=== PATIENT | male | born 1960 | race Caucasian/White ===

== ENCOUNTER 2016-07-26 09:51 | Emergency (ER) | payer OTHER ==
[2016-07-26 09:58] VITALS: O2SAT 95
[2016-07-26] MEDS ORDERED: NS 1,000 ML IV ONE ×2 (10:09)
--- NOTE | 2016-07-26 10:12 | EDPHY ---
H & P Stated Complaint: Bilat flank pain since yesterday, blood in urine today Time Seen by Provider: 07/26/16 10:01 HPI/ROS: CHIEF COMPLAINT: Flank pain, hematuria day HISTORY OF PRESENT ILLNESS: 55-year-old male with no prior history of nephrolithiasis, no anticoagulant use, complaining of left flank abdominal pain , hematuria since yesterday. Normal urine output. No testicular genitalia pain. No perineal pain. No clots. No antecedent urinary or other illness. No dyspnea. No trauma. No rash. PRIMARY CARE PROVIDER: Dr. Madhu Chu REVIEW OF SYSTEMS: A ten point review of systems was performed and is negative with the exception of the items mentioned in the HPI PAST MEDICAL & SURGICAL HISTORY: bipolar disorder. Alcoholism. Suboxone therapy. SOCIAL HISTORY: Nonsmoker PHYSICAL EXAM (Prior to examination, patient consented to physical exam, hands were washed and my usual and customary physical exam procedures followed) 1) GENERAL: Well-developed, well-nourished, alert and oriented. Appears nontoxic . 2) HEAD: Normocephalic, atraumatic 3) HEENT: Pupils equal, round, reactive to light bilaterally. Sclera anicteric. 4) NECK: Full range of motion, no meningeal signs. 5) LUNGS: Clear auscultation bilaterally, no wheezes, no rhonchi, no retractions. 6) HEART: Regular rate and rhythm, no murmur, no heave, no gallop. 7) ABDOMEN: No guarding, no rebound, no focal tenderness, negative McBurney's, negative Martinez's, negative Rovsing's, negative peritoneal sign, I am unable to elicit any abdominal pain 8) MUSCULOSKELETAL: Moving all extremities, no focal areas of tenderness, no obvious trauma. No peripheral edema or discoloration. 9) BACK: positive left CVA tenderness, 10) SKIN: No rash, no petechiae. 11) : Normal male external genitalia, no testicular pain, no asymmetry, no swelling. Perineal examination unremarkable with no tenderness.. DIFFERENTIAL DIAGNOSIS: in no particular include but not limited to nephrolithiasis, pyelonephritis, abdominal aortic aneurysm or dissection - Personal History Current Tetanus Diphtheria and Acellular Pertussis (TDAP): Yes - Medical/Surgical History Hx Asthma: No Hx Chronic Respiratory Disease: No Hx Diabetes: No Hx Cardiac Disease: No Hx Renal Disease: No Hx Cirrhosis: No Hx Alcoholism: Yes Hx HIV/AIDS: No Hx Splenectomy or Spleen Trauma: No Other PMH: HTN, bipolar. - Social History Smoking Status: Light smoker Constitutional: Initial Vital Signs Temperature (C) 36.7 C 07/26/16 09:53 Heart Rate 88 07/26/16 09:53 Respiratory Rate 16 07/26/16 09:53 Blood Pressure 146/97 H 07/26/16 09:53 O2 Sat (%) 95 07/26/16 09:53 O2 Delivery Mode Room Air Allergies/Adverse Reactions: neomycin [Neomycin] Allergy (Severe, Verified 02/15/09 21:01) Home Medications: Medication Instructions Recorded TONY-D 12 HOUR TABLET 02/15/09 CYMBALTA 02/15/09 Buprenorphine 07/26/16 LaMICtal 07/26/16 Peg 3350/Na Sulf,Bicarb,Cl/KCl 1,000 ml PO ONCE #4000 ml 07/26/16 [Golytely (RX)] Medical Decision Making - Diagnostics Imaging: CT Abdomen and Pelvis Unenhanced (Renal Stone Protocol) Indication: Left flank pain. Comparison: None available. Technique: Axial unenhanced CT imaging was performed through the abdomen and pelvis without contrast. Dose reduction techniques were utilized. Findings: Abdomen: The lung bases are clear. The imaged noncontrast portions of the liver, spleen, gallbladder, pancreas and adrenal glands are unremarkable. There is a punctate nonobstructing stone in the inferior right kidney. The left kidney has a normal unenhanced appearance. Moderate stool is present throughout the colon. The colon and small bowel are normal caliber. The appendix is normal. There is no free fluid or air. A small fat-containing paraumbilical hernia is present. The aorta is normal caliber. Mild degenerative change is present in the spine. Pelvis: No bladder or distal ureteral calcifications are identified. The prostate is normal size. No aggressive osseous lesions are present. Impression: 1. Punctate nonobstructing right renal stone. 2. Constipation. 3. Small fat-containing paraumbilical hernia. 4. Additional findings as above. Findings discussed with Henrik Florentino on July 26, 2016 at 11:02 a.m. Attention: This CT examination is specifically designed to evaluate patients who are clinically suspected of having acute obstructive uropathy. This examination does not use radiographic contrast , and as such, provides only a limited evaluation of the abdomen, pelvis and retroperitoneum. If there is further clinical suspicion for pathological conditions other than obstructive uropathy, a complete CT evaluation of the abdomen and pelvis utilizing intravenous and oral contrast should be considered. Dictated By: Aldo Mansfield MD Images reviewed by myself ED Course/Re-evaluation: 11:10 a.m.: Patient re-evaluated with serial examinations. I discussed his imaging results results. He has no no signs of urinary infection, no hematuria. Doubt acute surgical abdominal pathology. He is noted to be constipated. Do not think that further evaluation or studies indicated from the emergency department. Plan will be discharge. Usual and customary discharge precautions instructions provided. He feels comfortable being discharged. - Data Points Laboratory Results: Laboratory Results 07/26/16 10:20 07/26/16 10:20 07/26/16 07/26/16 07/26/16 10:40 10:20 10:20 WBC 6.31 10^3/uL 10^3/uL (3.80-9.50) RBC 4.88 10^6/uL 10^6/uL (4.40-6.38) Hgb 16.4 g/dL g/dL (13.7-17.5) Hct 46.2 % % (40.0-51.0) MCV 94.7 fL fL (81.5-99.8) MCH 33.6 pg pg (27.9-34.1) MCHC 35.5 g/dL g/dL (32.4-36.7) RDW 13.5 % % (11.5-15.2) Plt Count 257 10^3/uL 10^3/uL (150-400) MPV 9.4 fL fL (8.7-11.7) Neut % (Auto) 66.4 % % (39.3-74.2) Lymph % (Auto) 21.6 % % (15.0-45.0) Geary % (Auto) 11.1 % % (4.5-13.0) Eos % (Auto) 0.0 % L % (0.6-7.6) Baso % (Auto) 0.6 % % (0.3-1.7) Nucleat RBC Rel Count 0.0 % % (0.0-0.2) Absolute Neuts (auto) 4.19 10^3/uL 10^3/uL (1.70-6.50) Absolute Lymphs (auto) 1.36 10^3/uL 10^3/uL (1.00-3.00) Absolute Monos (auto) 0.70 10^3/uL 10^3/uL (0.30-0.80) Absolute Eos (auto) 0.00 10^3/uL L 10^3/uL (0.03-0.40) Absolute Basos (auto) 0.04 10^3/uL 10^3/uL (0.02-0.10) Absolute Nucleated RBC 0.00 10^3/uL 10^3/uL (0-0.01) Immature Gran % 0.3 % % (0.0-1.1) Immature Gran # 0.02 10^3/uL 10^3/uL (0.00-0.10) Sodium 139 mEq/L mEq/L (134-144) Potassium 4.1 mEq/L mEq/L (3.5-5.2) Chloride 102 mEq/L mEq/L (97-110) Carbon Dioxide 28 mEq/l mEq/l (22-31) Anion Gap 9 mEq/L mEq/L (8-16) BUN 12 mg/dL mg/dL (7-23) Creatinine 0.9 mg/dL mg/dL (0.7-1.3) Estimated GFR > 60 Glucose 96 mg/dL mg/dL (70-100) Calcium 9.8 mg/dL mg/dL (8.5-10.4) Creatine Kinase 81 IU/L IU/L (0-224) Urine Color YELLOW Urine Appearance CLEAR Urine pH 7.0 (5.0-7.5) Ur Specific Pratts 1.011 (1.002-1.030) Urine Protein NEGATIVE (NEGATIVE) Urine Ketones NEGATIVE (NEGATIVE) Urine Blood NEGATIVE (NEGATIVE) Urine Nitrate NEGATIVE (NEGATIVE) Urine Bilirubin NEGATIVE (NEGATIVE) Urine Urobilinogen NEGATIVE EU EU (0.2-1.0) Ur Leukocyte Esterase NEGATIVE (NEGATIVE) Urine RBC 1-3 /hpf /hpf (0-3) Urine WBC 1-3 /hpf /hpf (0-3) Ur Epithelial Cells NONE SEEN /lpf /lpf (NONE-1+) Urine Mucus TRACE /lpf /lpf (NONE-1+) Urine Glucose NEGATIVE (NEGATIVE) Medications Given: Discontinued Medications Sodium Chloride (Ns) 1,000 mls @ 0 mls/hr IV ONCE ONE PRN Reason: Wide Open Stop: 07/26/16 10:10 Last Admin: 07/26/16 10:34 Dose: 1,000 mls Sodium Chloride (Ns) 1,000 mls @ 3,000 mls/hr IV ONCE ONE Stop: 07/26/16 10:28 Last Admin: 07/26/16 10:34 Dose: Not Given Departure - Departure Disposition: Home, Routine, Self-Care Clinical Impression: Constipation Qualifiers: Constipation type: unspecified constipation type Qualified Code(s): K59.00 - Constipation, unspecified Condition: Good Instructions: Constipation (ED), High Fiber Diet (ED) Additional Instructions: Return to the emergency department immediately if you develop new or worsening abdominal pain, if you developed urinary abnormality or any other symptoms that concern you Referrals: MADHU CHU [Primary Care Provider] - 1 day without fail Prescriptions: Peg 3350/Na Sulf,Bicarb,Cl/KCl [Golytely (RX)] 1,000 ml PO ONCE #4000 ml
[2016-07-26 10:30] LABS: % IMMATURE GRANULYOCYTES 0.3 % (0.0-1.1); ABSOLUTE IMMATURE GRANULOCYTES 0.02 10^3/uL (0.00-0.10); ADD DIFF? NO; ADD MORPH? NO; ADD SCAN? NO; ATYPICAL LYMPHOCYTE FLAG 10 (0-99); FRAGMENT RBC FLAG 0 (0-99); HEMATOCRIT 46.2 % (40.0-51.0); HEMOGLOBIN 16.4 g/dL (13.7-17.5); LEFT SHIFT FLG 0 (0-99); LIPEMIA HEMOLYSIS FLAG 90 (0-99); MEAN CELL HEMOGLOBIN 33.6 pg (27.9-34.1); MEAN CELL HEMOGLOBIN CONCENTR. 35.5 g/dL (32.4-36.7); MEAN CELL VOLUME 94.7 fL (81.5-99.8); MEAN PLATELET VOLUME 9.4 fL (8.7-11.7); PLATELET CLUMPS FLAG 10 (0-99); PLATELET COUNT 257 10^3/uL (150-400); RED BLOOD CELL COUNT 4.88 10^6/uL (4.40-6.38); RED CELL DISTRIBUTION WIDTH 13.5 % (11.5-15.2)
[2016-07-26 10:46] LABS: COLOR YELLOW; LEUKOCYTE ESTERASE,URINE NEGATIVE (NEGATIVE); NITRITE,URINE NEGATIVE (NEGATIVE)
[2016-07-26 10:47] LABS: MUCUS TRACE /lpf (NONE-1+)
[2016-07-26 10:50] LABS: ANION GAP 9 mEq/L (8-16); CALCIUM 9.8 mg/dL (8.5-10.4); CARBON DIOXIDE 28 mEq/l (22-31); CHLORIDE 102 mEq/L (97-110); CREATININE 0.9 mg/dL (0.7-1.3); GLOMERULAR FILTRATION RATE > 60; GLUCOSE 96 mg/dL (70-100); POTASSIUM 4.1 mEq/L (3.5-5.2); SODIUM 139 mEq/L (134-144)
[2016-07-26 11:27] VITALS: BP 184/101; PULSE 78; RESP 17; TEMP 98.4
== END 2016-07-26 11:27 | disposition home or self-care (01) ==
DX: K59.00 Constipation, unspecified (principal); I10 Essential (primary) hypertension; F17.200 Nicotine dependence, unspecified, uncomplicated

== ENCOUNTER 2017-05-03 14:46 | Emergency (ER) | payer OTHER ==
[2017-05-03 14:55] VITALS: BP 147/91; PULSE 69; RESP 16; TEMP 97.7; O2SAT 97
--- NOTE | 2017-05-03 15:29 | EDPHY ---
General Narrative: CHIEF COMPLAINT: Finger lacerations HISTORY OF PRESENT ILLNESS: Patient presents with complaints of lacerations to the left index and middle finger. This happened approximately 1 hr ago. He was cutting beef when this happened. He sustained lacerations to the left index and middle finger tips. He said he struck him with force and has significant pain. Has not tried to bend them since that happened. No numbness or tingling. No injury elsewhere. Moderate bleeding from the left index finger. Minimal from the middle finger. Tetanus is up-to-date as of 2009. No other associated complaints or modifying factors. TIME OF INJURY: Approximately 1 hr ago TETANUS STATUS: Two thousand ten MEDICAL/SURGICAL/SOCIAL HISTORY: Bipolar disorder. Hypertension. No recent surgeries. Daily smoker. Occasional alcohol use. REVIEW OF SYSTEMS: Ten systems reviewed and are negative unless otherwise noted in the HPI EXAMINATION General Appearance: Alert, no distress Head: normocephalic, atraumatic Cardiovascular: Symmetric radial pulses 2+. Brisk cap refill on the affected to fingers Neurological: A&O, sensory intact in the affected fingers symmetrically to the right hand. Good strength of the interossei. Skin: Warm and dry, no rash. 2.5 cm laceration of the left index finger distal phalanx, radial side. Minimal bleeding noted. No pulsatile bleeding. Superficial laceration of the left middle finger distal phalanx, radial side, 1 cm. No foreign body in either laceration. Extremities: Tenderness over the 2 lacerations of the left hand. Range of motion is intact with full flexion extension of the affected fingers. DIFFERENTIAL DIAGNOSES: Including but not limited to simple laceration, complex laceration, fracture, open fracture MDM: 3:20 p.m. Lacerations to the left index and middle fingers caused by meat milton. Laceration of the index finger will need to be repaired. The middle finger laceration is superficial. I have administered digital blocks. Proceed with irrigation. I have ordered x-rays due to the force of the injury. No acute distress. 4:10 p.m. X-rays negative for fracture. proceed with irrigation and closure. 4:45 p.m. Wounds have been irrigated and I have close the left index finger laceration. This was more extensive than originally thought, but there is still no apparent injury to the flexor or extensor tendon apparatus. He has full flexion extension including the superficialis and profundus of the flexor side. Nonpulsatile bleeding. This was repaired without complication with good approximation of wound borders. The middle finger laceration is superficial and does not require closure of any kind. Tube gauze in place. Wound care discussed. Limited range of motion due to the complexity of the laceration. Return here in 7-10 days for suture removal. Comfortable with this plan. Discharged home stable condition, neurovascular intact PROCEDURE: Laceration repair Consent: Verbal Location: Left index finger, distal phalanx, radial side Length of repair: 2.5 cm, curvilinear Complexity: Complex Layer involvement: Single Anesthesia: Digital block Irrigation: Extensive Debridement: None Procedure description: Following good anesthesia, the wound was copiously irrigated. Wound bed was explored with a sterile glove, and there is no foreign body noted. No obvious injury to the underlying tendon apparatus. Wound borders were approximated well with good hemostasis. Tolerated well without complication. Suture/Staple material: 5-0 Prolene. Six simple interrupted sutures Wound care: Routine as discussed Suture/Staple removal: 7-10 Days SUPERVISION: This patient was independently evaluated without direct involvement of or examination by the attending physician. ED Precautions: Worsening pain. Erythema, edema, cyanosis, pallor, paresthesia or anesthesia. - Diagnostics Imaging Results: Imaging Impressions Hand X-Ray 05/03/17 15:20 Impression: No fracture identified. - History Smoking Status: Light smoker - Objective Vital Signs: Initial Vital Signs Temperature (C) 97.7 F 05/03/17 14:53 Heart Rate 69 05/03/17 14:53 Respiratory Rate 16 05/03/17 14:53 Blood Pressure 147/91 H 05/03/17 14:53 O2 Sat (%) 97 05/03/17 14:53 O2 Delivery Mode Room Air Allergies/Adverse Reactions: neomycin [Neomycin] Allergy (Severe, Verified 05/03/17 14:52) Home Medications: Medication Instructions Recorded CYMBALTA 02/15/09 Buprenorphine 07/26/16 LaMICtal 07/26/16 Amoxicillin/Clavulanate Pot 875 mg PO BID #14 tab 05/03/17 [Augmentin 875 MG TAB (*)] Lisinopril 05/03/17 Lopid 600 MG (*) 05/03/17 Metoprolol Succinate 05/03/17 oxyCODONE HCL/ACETAMINOPHEN 1 each PO Q4-6PRN PRN #7 tablet 05/03/17 [Percocet 5-325 mg Tablet] Departure - Departure Disposition: Home, Routine, Self-Care Clinical Impression: Laceration of index finger Qualifiers: Encounter type: initial encounter Damage to nail status: without damage Foreign body presence: without foreign body Laterality: left Qualified Code(s): S61.211A - Laceration without foreign body of left index finger without damage to nail, initial encounter Laceration of middle finger Qualifiers: Encounter type: initial encounter Damage to nail status: without damage Foreign body presence: without foreign body Laterality: left Qualified Code(s): S61.213A - Laceration without foreign body of left middle finger without damage to nail, initial encounter Condition: Good Instructions: Finger Laceration (ED) Additional Instructions: 1. Daily wound care as discussed 2. Antibiotics as prescribed to completion 3. ED precautions for worsening pain, redness, warmth, purulence or fever 4. Follow up with hand surgeon next week if pain persists Referrals: MADHU CHU [Primary Care Provider] - As per Instructions Rudy Fisher MD [Medical Doctor] - As per Instructions Prescriptions: Amoxicillin/Clavulanate Pot [Augmentin 875 MG TAB (*)] 875 mg PO BID #14 tab oxyCODONE HCL/ACETAMINOPHEN [Percocet 5-325 mg Tablet] 1 each PO Q4-6PRN PRN #7 tablet PRN Reason: Pain, Breakthrough
== END 2017-05-10 12:33 | disposition home or self-care (01) ==
PROC: 0HQGXZZ Repair Left Hand Skin, External Approach (ICD-10-PCS; principal; 2017-05-03)
DX: S61.213A Laceration without foreign body of left middle finger without damage to nail, initial encounter (principal); S61.211A Laceration without foreign body of left index finger without damage to nail, initial encounter; I10 Essential (primary) hypertension; F17.200 Nicotine dependence, unspecified, uncomplicated; W26.0XXA Contact with knife, initial encounter

== ENCOUNTER 2017-06-07 10:24 | Emergency (ER) | payer OTHER ==
[2017-06-07 10:30] VITALS: RESP 18
[2017-06-07] MEDS ORDERED: OXYCODONE/APAP 5/325 TAB PO ONE (12:27)
--- NOTE | 2017-06-07 12:32 | EDPHY ---
General Narrative: CHIEF COMPLAINT: Left foot and toe injury HISTORY OF PRESENT ILLNESS: Patient reports injuring his left foot until last night around 9:00 p.m.. It was accidental blunt trauma. He has pain in the left 4th and 5th toes. He says "I put the 5th toe back in," but pain persists in the 4th toe. Unable to bear weight due to pain. No numbness or tingling. No weakness. No trauma or injury elsewhere. No other associated complaints or modifying factors. REVIEW OF SYSTEMS: Ten systems reviewed and are negative unless otherwise noted in the HPI SPECIALISTS: None FAMILY HISTORY: Noncontributory EXAMINATION General Appearance: Alert, no distress Head: normocephalic, atraumatic Cardiovascular: Regular rate. DP and PT pulses symmetric. Brisk cap refill in the affected toe. Neurological: A&O, nonfocal, no footdrop. Normal light sensation to the top of both feet. Skin: Warm and dry, no rash. Mild subacute abrasions to both feet Extremities: Tenderness of the left foot over the 4th and 5th metatarsals and phalanges. No tenderness of the left ankle or calcaneus. Psychiatric: Mood and affect normal DIFFERENTIAL DIAGNOSES: Including but not limited to fracture, sprain, strain, dislocation, fracture dislocation MDM: 12:20 p.m. Acute dislocation of the left 4th toe at the MTP joint. No fracture. 12:30 p.m. Closed reduction of the left 4th MTP joint. No fracture on x-ray prior to reduction. I did use the C-arm fluoroscopy to confirm that the toe was reduced. I have ordered x-ray and Percocet. He is neurovascular intact. Postoperative shoe as been ordered. 12:45 p.m. Post-reduction film show successful alignment without fracture. Patient re- evaluated and informed of this. Postoperative shoe applied. Discharged home with weight-bearing as tolerated instructions. Referral to [facility] orthopedist for definitive care. Anti-inflammatories as needed. Ice and elevate often. Short course of pain medication. ED precautions discussed. Comfortable this plan and discharged home stable condition PROCEDURE: Closed reduction of left toe Consent: Verbal Location: Left 4th MTP joint Anesthesia: Local. 1% lidocaine plain. 5 mL Procedure: After time-out verbal consent, the left 4th toe was manipulated with traction counter traction. I was unable to reduce at 1st, and then C-arm was utilized to visualize successful reduction at the MTP joint. Tolerated well. No complication. Neurovascular intact distally Complications: None Post-reduction film: Confirmed by C-arm PROCEDURE: Digital Block Indication: Left toe dislocation Consent: Verbal Location: Left 4th toe at the MTP joint Anesthesia: Lidocaine 1% plain, 0.25% Marcaine plain, 5mL Description: Base of the toe was prepped. The above was infused without difficulty. Tolerated well. Good anesthesia. Complications: None SUPERVISION: This patient was independently evaluated without direct involvement of or examination by the attending physician. - Diagnostics Imaging Results: Imaging Impressions Foot X-Ray 06/07/17 11:34 Impression: Fourth metatarsal phalangeal joint dislocation. - History Smoking Status: Light smoker - Objective Vital Signs: Initial Vital Signs Temperature (C) 98.6 F 06/07/17 10:28 Heart Rate 77 06/07/17 10:28 Respiratory Rate 18 06/07/17 10:28 Blood Pressure 156/105 H 06/07/17 10:28 O2 Sat (%) 96 06/07/17 10:28 O2 Delivery Mode Room Air Allergies/Adverse Reactions: neomycin [Neomycin] Allergy (Severe, Verified 05/03/17 14:52) Home Medications: Medication Instructions Recorded CYMBALTA 02/15/09 Buprenorphine 07/26/16 LaMICtal 07/26/16 Lisinopril 05/03/17 Lopid 600 MG (*) 05/03/17 Metoprolol Succinate 05/03/17 oxyCODONE HCL/ACETAMINOPHEN 1 each PO Q4-6PRN PRN #7 tablet 06/07/17 [Percocet 5-325 mg Tablet] Departure - Departure Disposition: Home, Routine, Self-Care Clinical Impression: Dislocation of toe of left foot Qualifiers: Encounter type: initial encounter Qualified Code(s): S93.105A - Unspecified dislocation of left toe(s), initial encounter Condition: Good Instructions: Finger Dislocation (ED) Additional Instructions: 1. Weightbearing as tolerated the postop shoe 2. Ice and elevate often 3. Medications as discussed as needed 4. Orthopedic follow-up for definitive care Referrals: MADHU CHU [Primary Care Provider] - As per Instructions Billie Hernandez MD [Medical Doctor] - As per Instructions Annette Mckeon [Doctor of Podiatric Medicine] - As per Instructions Prescriptions: oxyCODONE HCL/ACETAMINOPHEN [Percocet 5-325 mg Tablet] 1 each PO Q4-6PRN PRN #7 tablet PRN Reason: Pain, Breakthrough
[2017-06-07 13:02] VITALS: BP 180/114; PULSE 70; TEMP 98.4; O2SAT 97
== END 2017-06-07 13:02 | disposition home or self-care (01) ==
PROC: 0SSNXZZ Reposition Left Metatarsal-Phalangeal Joint, External Approach (ICD-10-PCS; principal; 2017-06-07)
DX: S93.125A Dislocation of metatarsophalangeal joint of left lesser toe(s), initial encounter (principal); F17.200 Nicotine dependence, unspecified, uncomplicated; W23.1XXA Caught, crushed, jammed, or pinched between stationary objects, initial encounter
CPT/HCPCS: L4386